=== PATIENT | male | born 1980 | race Caucasian/White ===

== ENCOUNTER → 2017-01-29 | Outpatient (CLI) | payer BC ==
[~2017-01-29] MED LIST: OXYC1TAB3 PO
== END | disposition home or self-care (01) ==
LOC: C.PATHSPEC 17:44
PROVIDERS: ATTEND Urology
DX: Z30.2 Encounter for sterilization (principal)

== ENCOUNTER 2017-02-04 15:54 | Emergency (ER) | payer BC, OTHER ==
[~2017-02-04] VITALS: Ht 172.7 cm; Wt 100.4 kg
[2017-02-04 16:02] VITALS: TEMP 37.3; Ht 172.7 cm; Wt 100.4 kg
--- NOTE | 2017-02-04 16:10 | EMERGENCY ROOM VISIT NOTE ---
History First contact with patient: 15:51 Chief Complaint: WRIST PAIN Stated Complaint: WRIST DEFORMITY History of Present Illness The patient is a 36 year old male who presents to the Emergency Room with complaints of fall. The patient states that he was on [place] ladder [place] the fire house when it kicked out from beneath him. He states that he fell with the ladder forward and his arm was between the ground and the rungs of the ladder. He injured his left wrist. He denies striking his head or having loss of consciousness. He denies any nausea or vomiting. He denies any numbness or tingling. He denies any neck pain, chest pain, back pain, bowel pain, nausea, vomiting, extremity pain other than the left wrist. He denies any open areas. The patient was brought to the emergency department via ambulance. He was given 4 mg IV Zofran and 200 g IV fentanyl with improvement in his pain. Review of Systems A 10 system review of systems was completed with positives and pertinent negatives listed in the HPI. Past Medical/Surgical History patient denies Social History Smoking Status: Never Smoker Marital Status: single Current/Historical Medications Scheduled PRN Oxycodone Ir (Roxicodone Ir), 1-2 TAB PO Q4H PRN for Pain Allergies Coded Allergies: No Known Allergies (Unverified , 02/04/17) Physical Exam Vital Signs Date Time Temp Pulse Resp B/P Pulse Ox O2 Delivery O2 Flow Rate FiO2 02/04/17 18:59 74 18 139/74 91 02/04/17 17:50 70 18 126/74 98 Nasal Cannula 2.0 02/04/17 17:29 68 18 131/75 94 Room Air 02/04/17 16:50 67 18 122/83 92 Room Air 02/04/17 16:27 68 18 133/87 94 Room Air 02/04/17 16:02 37.3 75 18 128/89 96 Room Air Physical Exam VITALS: Vitals are noted on the nurse's note and reviewed by myself. Vital signs stable. GENERAL: This is a 36-year-old male, in no acute distress, nondiaphoretic, well- developed well-nourished. SKIN: There are superficial abrasions to the dorsal aspect of the left arm but appear to be old. There are no lacerations or abrasions. There is no tenting of the skin. Capillary reflex less than 2 seconds. HEAD: Normocephalic atraumatic. EARS: External auditory canals clear, tympanic membranes pearly sebastian without erythema or effusion bilaterally. No hemotympanum. No sanabria sign. No mastoid tenderness. EYES: Pupils equal round and reactive to light and accommodation. Conjunctivae without injection, sclerae without icterus. Extraocular movements intact. NOSE: Patent, turbinates without inflammation or discharge. No sinus tenderness. No septal hematoma or bleeding. FACE: No facial tenderness. Full range of motion of the jaw without tenderness. MOUTH: Mucous membranes moist. Pharynx without erythema or exudate. Uvula midline. Airway patent. Tongue does not deviate. NECK: Supple without nuchal rigidity. Cervical spine is nontender. Full range of motion of the neck without tenderness. No JVD. HEART: Regular rate and rhythm without murmurs gallops or rubs. LUNGS: Clear to auscultation bilaterally without wheezes, rales or rhonchi. No retractions or accessory muscle use. No chest tenderness. ABDOMEN: Positive bowel sounds x 4. Soft, nontender, without masses or organomegaly. MUSCULOSKELETAL: There is obvious deformity to the left wrist. It does not appear to be open. Radial pulse is intact. Decreased range of motion secondary to pain and deformity. The remaining extremities are unremarkable. NEURO: Patient was alert and oriented to person place and time. Normal Mini- Mental status exam. Normal sensation to light and sharp touch. No focal neurological deficits. Medical Decision & Procedures ER Provider Diagnostic Interpretation: LEFT WRIST MIN 3 VIEWS ROUTINE CLINICAL HISTORY: Left wrist pain status post trauma COMPARISON: None DISCUSSION: There is a comminuted intra-articular fracture of the distal radius. The distal radial fragment is dorsally displaced by one full shaft width. There is associated ulnar styloid fracture. IMPRESSION: Comminuted distal radial fracture. The distal fragment is dorsally displaced by one full shaft width. There is associated displaced ulnar styloid fracture. LEFT WRIST 2 VIEW CLINICAL HISTORY: Fracture status post reduction COMPARISON: 02/04/2017 DISCUSSION: There is been interval reduction of the previously described comminuted distal radial fracture. There is marked improvement in alignment with mild residual splaying of the intra-articular fragments. Fine bony details obscured by overlying plaster cast. IMPRESSION: Interval reduction of the previous described fracture with application of a plaster cast Medications Administered Medications (Trade) Dose Ordered Sig/Baldomero Route Start Time Stop Time Status Last Admin Dose Admin Morphine Sulfate (MoRPHine SULFATE INJ) 6 mg NOW STAT IV 02/04/17 16:19 02/04/17 16:20 DC 02/04/17 16:27 6 MG Hydromorphone HCl (Dilaudid Inj) 1 mg NOW STAT IV 02/04/17 16:44 02/04/17 16:46 DC 02/04/17 16:52 1 MG Hydromorphone HCl (Dilaudid Inj) 1 mg NOW STAT IV 02/04/17 17:30 02/04/17 17:32 DC 02/04/17 17:34 1 MG Oxycodone HCl (Roxicodone Immediate Rel 5MG Home Pack) 1 homepack UD ONCE PO 02/04/17 18:45 02/04/17 18:46 DC 02/04/17 19:00 1 HOMEPACK ED Course The patient was seen and examined. Previous visits were reviewed. Imaging was obtained as above. The patient has a significantly displaced left distal radius fracture. It does not appear to be open. I discussed the case with who evaluated the patient in the emergency department, reduced the fracture and placed the patient in a splint. Please see his dictation for details. The patient was initially given 6 mg IV morphine with no significant improvement in his pain He was then given 1 mg IV Dilaudid which helped his pain The patient had increasing pain during the reduction and additional 1 mg IV Dilaudid was ordered He was given a take-home pack of OxyIR The patient presents to the emergency department with an isolated left distal radius and ulnar styloid fractures as above. The fracture was reduced and splinted by orthopedics. The patient did not seem to have any other injury. He did not have any other complaints. He did not strike his head or have loss of consciousness. He does not have any chest pain or abdominal pain. He is able to walk without difficulty. The patient should follow-up with orthopedics on Friday as discussed. He should return with any worsening pain, numbness, tingling. The case was discussed with Dr. Simental who agrees with the assessment and treatment plan Medical Decision The differential diagnosis includes fracture, dislocation, open fracture, contusion, among others [place] Drug Monitoring Program Search Results: patient reviewed within database, no issues identified Impression Primary Impression: Closed fracture distal radius and ulna Departure Information Dispostion Home / Self-Care Condition GOOD Prescriptions Oxycodone Ir (Roxicodone Ir) 5 Mg Tab 1-2 TAB PO Q4H Y for Pain, #36 TAB For Initial Treatment Prov: Whitney Roach PA-C 02/04/17 Referrals No Doctor, Assigned (PCP) Prem Ruiz M.D. Patient Instructions My [facility] Additional Instructions Motrin 600 mg every 6-8 hours or moderate pain Oxy IR 1-2 tablets every 4-6 hrs as needed for worse pain. No driving or alcohol use with Oxy IR. Ice frequently over the next 24-48 hours Wear the splint and sling until seen by orthopedics Do not get the splint wet Follow-up with orthopedics on Friday Return if any worsening pain, numbness, tingling, coolness of the fingers or generalized worsening symptoms Problem Qualifiers Primary Impression: Closed fracture distal radius and ulna Encounter type: initial encounter Laterality: left Qualified Codes: S52.502A - Unspecified fracture of the lower end of left radius, initial encounter for closed fracture; S52.602A - Unspecified fracture of lower end of left ulna, initial encounter for closed fracture
[2017-02-04] MEDS ORDERED: MoRPHine SULFATE 10 MG/ML CARP/VIAL IV STA (16:19)
--- NOTE | 2017-02-04 16:37 | DIAGNOSTIC IMAGING REPORT ---
LEFT WRIST MIN 3 VIEWS ROUTINE CLINICAL HISTORY: Left wrist pain status post trauma COMPARISON: None DISCUSSION: There is a comminuted intra-articular fracture of the distal radius. The distal radial fragment is dorsally displaced by one full shaft width. There is associated ulnar styloid fracture. IMPRESSION: Comminuted distal radial fracture. The distal fragment is dorsally displaced by one full shaft width. There is associated displaced ulnar styloid fracture. Electronically signed by: Marcus Joy M.D. 02/04/2017 4:36 PM Dictated Date/Time: 02/04/2017 4:34 PM
[2017-02-04] MEDS ORDERED: HYDROmorphone INJ 1 MG/ML SYR IV STA ×2 (16:44→17:30)
[2017-02-04] MEDS ORDERED: BUPIVACAINE 0.5 % 5 MG/1 ML MPF 30ML VIAL INFIL ONE (16:45)
[2017-02-04] MEDS ORDERED: XYLOCAINE 1%/SOD BICARB 20 ML VIAL INFIL ONE (16:45)
--- NOTE | 2017-02-04 18:36 | DIAGNOSTIC IMAGING REPORT ---
LEFT WRIST 2 VIEW CLINICAL HISTORY: Fracture status post reduction COMPARISON: 02/04/2017 DISCUSSION: There is been interval reduction of the previously described comminuted distal radial fracture. There is marked improvement in alignment with mild residual splaying of the intra-articular fragments. Fine bony details obscured by overlying plaster cast. IMPRESSION: Interval reduction of the previous described fracture with application of a plaster cast Electronically signed by: Marcus Joy M.D. 02/04/2017 6:35 PM Dictated Date/Time: 02/04/2017 6:34 PM
[2017-02-04] MEDS ORDERED: OXYC1TAB3 PO (18:45)
[2017-02-04] MEDS ORDERED: OXYCODONE IR HOME PACK PO ONE (18:45)
[2017-02-04 18:59] VITALS: BP 139/74; PULSE 74; O2SAT 91
--- NOTE | 2017-02-05 02:33 | OPERATIVE REPORT ---
DATE OF OPERATION: 02/04/2017 PREPROCEDURE DIAGNOSIS: Displaced left distal radius fracture. POSTPROCEDURE DIAGNOSIS: Same. PROCEDURE: Closed reduction left distal radius. SURGEON: Dr. Ruiz. MEDICAL AFFAIRS MANAGER: None. ANESTHESIA: Hematoma block. SPECIMEN: None. COMPLICATION: None. ESTIMATED BLOOD LOSS: None. INDICATIONS: The patient is a 36-year-old male who sustained a fall off a ladder. He sustained a displaced 100% dorsally translated distal radius fracture. He is complaining of numbness and tingling in the hand. It is a closed injury. He wished to proceed with closed reduction with plan for later staged open reduction internal fixation. PROCEDURE IN DETAIL: The patient was identified, laterality was confirmed. I performed a hematoma block by sterilizing the dorsal aspect of the skin with alcohol wipe as well as Betadine. I then placed a 22-gauge needle into the distal radius, aspirated blood, and then injected with approximately 10 mL of 0.5% Marcaine without epinephrine. I placed him into 10 pounds of fingertip traction for approximately 10 minutes. I then performed a closed reduction of the distal radius and placed him in a sugar-tong splint. After the reduction, the numbness and tingling in the hand had significantly improved, his sensation had improved, his motor function of the fingers had improved. Post-reduction x-rays demonstrated adequate reduction. He still had significant comminution in the distal radius. He tolerated the procedure well. I attest to the content of the Intraoperative Record and any orders documented therein. Any exceptio ns are noted below.
--- NOTE | 2017-02-05 04:20 | CONSULTATION REPORT ---
DATE OF CONSULTATION: 02/04/2017 CHIEF COMPLAINT: Left distal arm pain. HISTORY OF PRESENT ILLNESS: The patient is a 36-year-old male who was on a ladder, the ladder slipped, he fell, the left arm was trapped within the rungs of the ladder. He had immediate pain and deformity of the left wrist. He is left hand dominant, works for [employer]. Currently complaining of some numbness and tingling in the hand, difficulty in utilizing finger, as well as wrist pain and deformity. PAST MEDICAL HISTORY: None. PAST SURGICAL HISTORY: ACL reconstruction, ankle surgery, vasectomy. FAMILY HISTORY: Noncontributory. MEDICATIONS: None. ALLERGIES: No known drug allergies. REVIEW OF SYSTEMS: As above. PHYSICAL EXAMINATION: VITAL SIGNS: Afebrile. Vital signs stable. GENERAL: Alert and oriented x3, no acute distress. Mood and affect are normal. He is pleasant and cooperative with examination. HEENT: Atraumatic. CHEST: Clear. CARDIOVASCULAR: Regular rate and rhythm. ABDOMEN: Soft, nontender. EXTREMITIES: Examination of the left upper extremity, 2+ radial pulse. Light touch sensation is slightly decreased in the fingers. He is just able to wiggle the thumb, index and small fingers, he is unable to give me much more movement than that secondary to pain. There is no open injury. Examination of contralateral hand is unremarkable. IMAGING DATA: X-rays of the left wrist, this is a dorsally displaced and 100% dorsally translated comminuted distal radius fracture with approximately 2 cm of shortening. There is also a fracture to the distal ulnar styloid. Post-reduction x-rays demonstrate adequate yarsani of alignment. ASSESSMENT: Left displaced distal radius fracture. PLAN: The patient's distal radius fracture was 100% displaced dorsally with about 2 cm of shortening. I performed a hematoma block in the Emergency Room, placed him in a finger trap traction, and then performed a closed reduction in the Emergency Room. He was placed in a sugar-tong splint. Plan will be for open reduction internal fixation later next week for definitive fracture management. He will be discharged to home for now and then follow up in the office on Friday with likely surgery on Friday. All questions were answered.
== END 2017-02-04 19:08 | disposition home or self-care (01) ==
LOC: EDBD 15:54 → C.EDC 15:58
DX: S52.572A Other intraarticular fracture of lower end of left radius, initial encounter for closed fracture (principal); S52.612A Displaced fracture of left ulna styloid process, initial encounter for closed fracture; W11.XXXA Fall on and from ladder, initial encounter; Y92.89 Other specified places as the place of occurrence of the external cause